=== PATIENT | male | born 2000 | race Caucasian/White ===

== ENCOUNTER → 2019-03-11 | Outpatient (CLI) | payer BC | LOC: GMAJ 16:48 | PROVIDERS: ATTEND Family Medicine | DX: F51.3 Sleepwalking [somnambulism] (principal) ==

== ENCOUNTER → 2019-03-24 | Outpatient (CLI) | payer BC | LOC: SL 20:01 | PROVIDERS: ATTEND Family Medicine | DX: F51.3 Sleepwalking [somnambulism] (principal); G47.10 Hypersomnia, unspecified; G47.9 Sleep disorder, unspecified; R06.83 Snoring ==